=== PATIENT | male | born 1995 | race African-American/Black ===

== ENCOUNTER 2022-06-01 21:28 | Emergency (ER) | payer SELFPAY ==
[~2022-06-01] VITALS: Ht 177.8 cm; Wt 77.3 kg
[2022-06-01 21:30] VITALS: BP 137/82
== END 2022-06-01 22:01 ==
LOC: ER 21:28
DX: M25.561 Pain in right knee (principal); Z79.899 Other long term (current) drug therapy
CPT/HCPCS: 99283